=== PATIENT | female | born 1965 | race African-American/Black ===

== ENCOUNTER → 2017-08-02 | Outpatient (CLI) | payer OTHER ==
[~2017-08-02] MED LIST: AMLODIPINE BESYL5 M1 PO; HYDRALAZINE 2525 MG PO; HYDROCHLOROTH12.5 M1 PO
== END ==
LOC: M.RAD 10:47
DX: Z12.31 Encounter for screening mammogram for malignant neoplasm of breast (principal)

== ENCOUNTER → 2018-08-03 | Outpatient (CLI) | payer OTHER | LOC: M.RAD 14:53 | DX: R92.2 Inconclusive mammogram (principal) ==

== ENCOUNTER → 2019-07-13 | Outpatient (CLI) | payer BC | LOC: M.RAD 08:46 | DX: Z12.31 Encounter for screening mammogram for malignant neoplasm of breast (principal) ==

== ENCOUNTER → 2019-07-20 | Outpatient (CLI) | payer BC | LOC: M.ULTRA 08:29 | DX: N64.89 Other specified disorders of breast (principal); R92.2 Inconclusive mammogram ==

== ENCOUNTER → 2020-01-14 | Outpatient (CLI) | payer BC | LOC: M.ULTRA 08:25 | PROVIDERS: ATTEND Family Medicine | DX: R92.2 Inconclusive mammogram (principal) ==

== ENCOUNTER → 2020-08-08 | Outpatient (CLI) | payer BC | LOC: M.RAD 09:00 | PROVIDERS: ATTEND Family Medicine | DX: Z12.31 Encounter for screening mammogram for malignant neoplasm of breast (principal); N64.89 Other specified disorders of breast ==

== ENCOUNTER → 2021-06-01 | Outpatient (CLI) | payer OTHER | LOC: M.CT 07:58 | PROVIDERS: ATTEND Internal Medicine Cardiovascular Disease | DX: Z13.6 Encounter for screening for cardiovascular disorders (principal); I25.10 Atherosclerotic heart disease of native coronary artery without angina pectoris ==